=== PATIENT | female | born 1975 | race Caucasian/White ===

== ENCOUNTER 2019-09-18 15:26 | Emergency (ER) | payer SELFPAY ==
[~2019-09-18] VITALS: Ht 165.1 cm; Wt 117.9 kg
== END 2019-09-18 15:51 | disposition home or self-care (01) ==
LOC: ED 15:26
DX: M25.561 Pain in right knee (principal); M25.562 Pain in left knee; M79.671 Pain in right foot

== ENCOUNTER 2020-11-25 07:45 | Day surgery (SDC) | payer OTHER ==
[~2020-11-25] VITALS: Ht 165.1 cm; Wt 125.5 kg
[~2020-11-25 07:45] MED LIST: ACTOS15 MG PO; AIRDUO DIGIHAL1 EACH INH; ATORVASTATIN CA40 MG PO; AZELASTINE HCL6 ML OPTH; BENZTROPINE ME0.5 MG PO; CLONIDINE HCL0.1 MG PO; CLOTRIMAZOLE TOP; COZAAR25 MG PO; CYMBALTA30 MG PO; GLIPIZIDE10 MG PO; JARDIANCE10 MG PO; METFORMIN HCL1000 MG PO; MOBIC15 MG PO; NEURONTIN300 MG PO; OMEPRAZOLE20 MG PO; OXYBUTYNIN CHLOR5 M1 PO; PRAZOSIN HCL1 MG PO; TOPAMAX100 MG PO; TRULICITY1.5 MG/0.5
--- NOTE | 2020-11-25 08:15 | NUR ---
PEE MERCADO ON WARM PER PATIENT'S REQUEST. CALL LIGHT WITHIN REACH.
--- NOTE | 2020-11-25 12:02 | NUR ---
LE 1030: PATIENT AND HER MOTHER UPDATED ON STATUS OF SURGICAL SCHEDULE. BOTH VERBALIZE UNDERSTANDING AND LEMON GLYCERINE MOUTH SWABS GIVEN TO PATIENT FOR DRY MOUTH. PATIENT AND HER MOTHER UPDATED ON STATUS OF SURGICAL SCHEDULE. BOTH VERBALIZE UNDERSTANDING.
--- NOTE | 2020-11-25 13:08 | NUR ---
11/25/20 Eleazar8 Shannan Bejarano 1301- PT ARRIVES TO PACU NONAROUSABLE TO NOXIOUS STIMULI WITH AN OPA IN PLACE. RESP EVEN AND UNLABORED. OXYGEN SAT MID 90'S ON 10L VIA MASK.
--- NOTE | 2020-11-25 13:57 | NUR ---
PATIENT REMAINS 98% ON 2L VIA NC FOR 7 MINUTES. OXYGEN IS TURNED OFF. SUGAR FREE JELLO GIVEN. ICED WATER GIVEN. PATIENT IS SITTING UP IN BED, EATING AND DRINKING AND SHE IS TOLERATING THAT WELL. CALL LIGHT IS WITHIN REACH.
--- NOTE | 2020-11-25 15:01 | NUR ---
LE 1440: PATIENT IS UP TO THE BATHROOM. SHE VOIDS 100 ML OF BLOODY URINE AND AMBULATES BACK TO HER ROOM. SHE DENIES DIZZINESS. DISCHARGE INSTRUCTIONS ARE GIVEN AND SHE VERBALIZES UNDERSTANDING. PATIENT IS GETTING DRESSED IN THE PRESENCE OF HER MOTHER. NEW TREVA PAD IS GIVEN. PATIENT TRANSFERS HERSELF TO THE WHEELCHAIR AND THEN TO PERSONAL VEHICLE AND SHE TOLERATES THAT WELL.
--- NOTE | 2020-11-26 18:54 | OR ---
[facility] [address] [place], [place] [address] Signed DATE OF OPERATION: 11/25/2020 SURGEON: Fredi Patton DO PREOPERATIVE DIAGNOSES: 1. Abnormal uterine bleeding. 2. Menorrhagia. 3. Polycystic ovary syndrome. 4. Morbid obesity. POSTOPERATIVE DIAGNOSES: 1. Abnormal uterine bleeding. 2. Menorrhagia. 3. Polycystic ovary syndrome. 4. Morbid obesity. 5. Cervical polyps. INDICATION: The patient is a 45-year-old female, who presented for abnormal periods due to significant increased risk of endometrial hyperplasia with morbid obesity and PCOS. Endometrial sampling was recommended. Risks, benefits, and alternatives to hysteroscopy D and C in the operating room versus in the office versus endometrial biopsy were discussed. The patient elected to proceed with hysteroscopy D and C in the operating room. FINDINGS: Atrophic-appearing endometrium with 2 cervical polyps located near the internal os at 11 and 1 o'clock respectively. Bilateral tubal ostia were visualized. DESCRIPTION OF PROCEDURE: The patient was taken back to the operating room where she was placed under general anesthesia and positioned on the table in dorsal lithotomy with pink fin stirrups. She was prepped and draped in the normal sterile fashion. Weighted speculum was inserted and with significant difficulty due to far anterior position of the cervix the cervix was visualized and grasped with a single-tooth tenaculum in the 12 o'clock position. Due to the location and angle of her cervical canal, dilation could not safely be performed and hysteroscope was inserted into the external os. Under direct visualization, the scope was advanced through the cervical canal with excellent visualization using the scope and distention media to gently dilate the cervix. Endometrial cavity was entered and surveyed with findings as noted above. [employer] Lite Electronically Signed By: FREDI PATTON DO 11/26/20 1854 PATIENT NAME: SARKIS RUBY OPERATIVE REPORT DATE OF : 79 REPORT #: [id number] PHYSICIAN: FREDI PATTON DO PCP: MODESTO MALDONADO MD REPORT IS CONFIDENTIAL AND NOT TO BE RELEASED WITHOUT AUTHORIZATION [facility] [address] [place], [place] [address] Signed device was used to circumferentially curette the endometrial cavity under direct visualization and remove cervical polyps near the internal os. All instrumentation was removed. Final fluid deficit was 355 mL. Tenaculum sites were inspected and noted to be hemostatic. Due to the difficulty visualizing the site, sponge stick was also used to confirm hemostasis at the cervix. Estimated blood loss was minimal, approximately 15 mL. Lap sponge and instrument counts were correct x 2. The patient was taken to recovery in stable and satisfactory condition with plans to follow up in office for postop visit in 1 to 2 weeks to review pathology. SPECIMEN REMOVED: Endometrial curettings. Fredi Patton DO EMZ/MODL /[id number] Copies: ~ Electronically Signed By: FREDI PATTON DO 11/26/20 5858 PATIENT NAME: SARKIS RUBY OPERATIVE REPORT DATE OF : 79 REPORT #: [id number] PHYSICIAN: FREDI PATTON DO PCP: MODESTO MALDONADO MD REPORT IS CONFIDENTIAL AND NOT TO BE RELEASED WITHOUT AUTHORIZATION
--- NOTE | 2020-11-29 16:27 | PATH ---
[facility] [address] [place], [place] [address] Signed SPECIMEN(S): A ENDOMETRIAL CURETTINGS, 1 BLOCK SPECIMEN SOURCE: A. ENDOMETRIAL CURETTINGS, 1 BLOCK CLINICAL HISTORY: Menorrhagia with irregular cycle; PCOS; hyperprolactinemia. Hysteroscopy, DC. FINAL PATHOLOGIC DIAGNOSIS: Endometrium, curettage: - Proliferative endometrium with foci of disordered proliferation. - Fragments with features suggestive of benign endometrial polyp(s). - Fragments of myometrial smooth muscle with no histopathologic abnormality. - Negative for hyperplasia, atypia or malignancy. COMMENT: As part of [facility] Quality Improvement Program, this case was reviewed by another member of our pathology staff. NAL:NRT:cml:C2NR MICROSCOPIC EXAMINATION: Histologic sections of all submitted blocks are examined by light microscopy. These findings, together with the gross examination, support the pathologic diagnosis. GROSS DESCRIPTION: The specimen, labeled "SA," and designated on the requisition "EMC," is received in formalin and consists of multiple fragments of pink-brady soft tissue (2.0 x 0.8 x 0.3 cm in aggregate). The specimen is submitted entirely in cassette (A1). AC (under the direct supervision of a pathologist) The Gross Description was prepared using a voice recognition system. The report was reviewed for accuracy; however, sound-alike word errors, addition and/or deletions may occur. If there is any question about this report, please contact Client Services. PERFORMING LABORATORY: The technical component was performed by [facility], [address] [place] [id number] (Retail Experience Specialist: Delmi Ferguson MD; CLIA# [id number]). [facility], [address] [facility], [facility]. [address], PATIENT NAME: SARKIS RUBY PATHOLOGY DATE OF : 79 REPORT #: [id number] PHYSICIAN: [facility] PCP: MODESTO MALDONADO MD REPORT IS CONFIDENTIAL AND NOT TO BE RELEASED WITHOUT AUTHORIZATION [facility] [address] [place] [address] [place] [address] Signed Erik Cherry [id number] (CLIA# [id number]). Diagnostician: Makayla Noguera MD Pathologist Electronically Signed 11/29/2020 Copies: ~ PATIENT NAME: SARKIS RUBY PATHOLOGY DATE OF : 79 REPORT #: [id number] PHYSICIAN: [facility] PCP: MODESTO MALDONADO MD REPORT IS CONFIDENTIAL AND NOT TO BE RELEASED WITHOUT AUTHORIZATION
== END 2020-11-25 14:55 | disposition home or self-care (01) ==
LOC: OPS 07:45 → DS 07:45 → OPS 08:15 → DS 08:15 → OPS 14:55
PROVIDERS: ATTEND Obstetrics & Gynecology
PROC: 0UDB8ZX Extraction of Endometrium, Via Natural or Artificial Opening Endoscopic, Diagnostic (ICD-10-PCS; principal; 2020-11-25 08:15)
DX: N92.1 Excessive and frequent menstruation with irregular cycle (principal); N84.1 Polyp of cervix uteri; E22.1 Hyperprolactinemia; E28.2 Polycystic ovarian syndrome; E66.01 Morbid (severe) obesity due to excess calories; E11.21 Type 2 diabetes mellitus with diabetic nephropathy; F17.210 Nicotine dependence, cigarettes, uncomplicated; E78.5 Hyperlipidemia, unspecified; Z79.84 Long term (current) use of oral hypoglycemic drugs; Z88.2 Allergy status to sulfonamides; Z91.040 Latex allergy status
CPT/HCPCS: 00952; 84703; J1100; J1644; J1885; J2001; J2370; J2405; J2704; J3010; J7121

== ENCOUNTER 2024-09-17 17:48 | Emergency (ER) | payer OTHER ==
[~2024-09-17] VITALS: Ht 165.1 cm; Wt 122.9 kg
[~2024-09-17 17:48] MED LIST changes: +DAPAGLIFLOZIN5 MG PO; +NORETHINDRONE0.35 MG PO; +SOLIFENACIN SUC10 MG PO; +TRAZODONE HCL100 MG PO; +VITAMIN D21250 MCG PO
[2024-09-17] MEDS ORDERED: LAMOTRIGINE200 MG PO (20:36)
[2024-09-17] MEDS ORDERED: AMOX TR-K CLV1 EAC1 PO (20:36)
[2024-09-17 20:44] VITALS: BP 118/72
[2024-09-17] MEDS ORDERED: AMOXICILLIN/CLAVULANATE K 875 MG HOME.PACK PO ONE (20:45)
== END 2024-09-17 20:45 | disposition home or self-care (01) ==
LOC: ED 17:48
DX: H66.92 Otitis media, unspecified, left ear (principal); E11.9 Type 2 diabetes mellitus without complications; F17.200 Nicotine dependence, unspecified, uncomplicated; Z88.2 Allergy status to sulfonamides; Z91.011 Allergy to milk products; Z91.040 Latex allergy status; Z79.899 Other long term (current) drug therapy; Z79.84 Long term (current) use of oral hypoglycemic drugs
CPT/HCPCS: 99282

== ENCOUNTER 2025-01-25 13:29 | Emergency (ER) | payer OTHER | END 2025-01-25 15:13 | disposition home or self-care (01) | LOC: ED 13:29 | DX: E11.65 Type 2 diabetes mellitus with hyperglycemia (principal); F17.200 Nicotine dependence, unspecified, uncomplicated; Z88.2 Allergy status to sulfonamides; Z91.040 Latex allergy status; Z91.011 Allergy to milk products; Z79.899 Other long term (current) drug therapy ==

== ENCOUNTER 2025-06-03 18:19 | Emergency (ER) | payer OTHER ==
[~2025-06-03] VITALS: Ht 165.1 cm; Wt 129.5 kg
[~2025-06-03 18:19] MED LIST changes: +AMOX TR-K CLV1 EAC1 PO; +LAMOTRIGINE200 MG PO; +SERTRALINE HCL50 MG PO
[2025-06-03 19:45] VITALS: BP 117/87
== END 2025-06-03 19:46 | disposition home or self-care (01) ==
LOC: ED 18:19
DX: S96.911A Strain of unspecified muscle and tendon at ankle and foot level, right foot, initial encounter (principal); E11.9 Type 2 diabetes mellitus without complications; F17.200 Nicotine dependence, unspecified, uncomplicated; Z88.2 Allergy status to sulfonamides; Z91.040 Latex allergy status; Z91.011 Allergy to milk products; Z79.84 Long term (current) use of oral hypoglycemic drugs; Z79.899 Other long term (current) drug therapy; X50.1XXA Overexertion from prolonged static or awkward postures, initial encounter
CPT/HCPCS: 73610; 73630; 99283